=== PATIENT | male | born 1955 | race Caucasian/White ===

== ENCOUNTER → 2016-10-03 | Outpatient (REF) | payer OTHER ==
[2016-10-03 12:14] LABS: MEAN CORPUSCULAR HEMOGLOBIN 27.4 pg (27.0-33.0); MEAN CORPUSCULAR HGB CONC 31.4 g/dl (32.0-36.5); MEAN CORPUSCULAR VOLUME 87.4 fl (80.0-96.0); RED CELL DISTRIBUTION WIDTH 14.5 % (11.5-14.5); WHITE BLOOD COUNT 7.7 K/mm3 (4.0-10.0)
[2016-10-03 12:57] LABS: ALBUMIN 3.8 GM/DL (3.2-5.2); ALBUMIN/GLOBULIN RATIO 1.19 (1.00-1.93); ALKALINE PHOSPHATASE 92 U/L (45-117); ALT/SGPT 18 U/L (12-78); ANION GAP 7 MEQ/L (8-16); AST/SGOT 14 U/L (15-37); BILIRUBIN,TOTAL 0.5 MG/DL (0.2-1.0); BLOOD UREA NITROGEN 14 MG/DL (7-18); CARBON DIOXIDE LEVEL 29 MEQ/L (21-32); CHLORIDE LEVEL 104 MEQ/L (98-107); CHOLESTEROL LEVEL 203 MG/DL (<200); CREATININE FOR GFR 0.89 MG/DL (0.70-1.30); FERRITIN 30 NG/ML (26-388); GLOMERULAR FILTRATION RATE > 60.0 (>56); GLUCOSE, FASTING 100 MG/DL (70-105); POTASSIUM SERUM 4.3 MEQ/L (3.5-5.1); SODIUM LEVEL 140 MEQ/L (136-145); TRIGLYCERIDES LEVEL 94 MG/DL (<150)
== END ==
LOC: M SFHCLERA 07:59
PROVIDERS: ATTEND Physician Assistant
DX: D50.9 Iron deficiency anemia, unspecified (principal)

== ENCOUNTER → 2016-10-14 | Outpatient (CLI) | payer OTHER ==
[~2016-10-14] MED LIST: E-Z-PAQUE 96% w/w SUSP 176GM BTL As Ordered ONE
--- NOTE | 2016-10-14 17:37 | REP ---
SMALL BOWEL FOLLOW-THROUGH: The procedure was performed under the direct supervision of Dr. Miranda. The images were reviewed with Dr. Miranda. The potato grader film shows no organomegaly or pathological masses. The intestinal gas pattern is nonspecific. There are bowel sutures noted in the pelvis. There are surgical david noted overlying the right hip. Liquid barium was administered and the barium column was followed through the small bowel to the level of the terminal ileum. Small bowel transit time was approximately 1 hour. In the ileum there are 2 areas of narrowing which are apple core like in appearance. These may be skip lesions from inflammatory bowel disease, however malignancy is in the differential. The terminal ileum shows a long segment of irregular mucosa with separation of loops. Again this may represent inflammatory bowel disease versus malignancy. IMPRESSION: In the ileum there are two areas of narrowing which appear apple core like. The terminal ileum shows irregular mucosa with separation of loops. These findings may represent inflammatory bowel disease however malignancy is within the differential. 4 minutes and 1 second of fluoroscopy time was utilized for this procedure. Reviewed by ZHANG Fiore 10/15/2016 05:14 PEdited and Signed by Masood Miranda MD 10/15/2016 05:20 P
== END ==
LOC: M RAD 08:24
PROVIDERS: ATTEND Internal Medicine Gastroenterology
DX: Z12.11 Encounter for screening for malignant neoplasm of colon (principal)

== ENCOUNTER 2017-02-03 14:48 | Emergency (ER) | payer OTHER ==
[~2017-02-03] VITALS: Ht 177.8 cm; Wt 79.5 kg
[2017-02-03] MEDS ORDERED: METO1TAB32 (15:00)
[2017-02-03] MEDS ORDERED: MULT1CHW39 PO (15:00)
[2017-02-03] MEDS ORDERED: ASPI81TA85 PO (15:00)
[2017-02-03] MEDS ORDERED: LORA2TAB9 (15:00)
[2017-02-03] MEDS ORDERED: VITA200016 PO (15:00)
[2017-02-03 16:34] LABS: BASO % 0.4 % (0.0-1.0); EOS # 0.1 K/mm3 (0.0-0.50); EOS % 1.3 % (0.0-3.0); LARGE UNSTAINED CELL # 0.1 K/mm3 (0.0-0.4); LARGE UNSTAINED CELL % 1.5 % (0.0-4.0); LYMPH # 2.1 K/mm3 (1.5-4.5); LYMPH % 22.4 % (24.0-44.0); MEAN CORPUSCULAR HEMOGLOBIN 29.3 pg (27.0-33.0); MEAN CORPUSCULAR HGB CONC 32.9 g/dl (32.0-36.5); MEAN CORPUSCULAR VOLUME 89.1 fl (80.0-96.0); MONO # 0.6 K/mm3 (0.0-0.8); MONO % 6.3 % (0.0-5.0); NEUTROPHILS # 5.9 K/mm3 (1.8-7.7); NEUTROPHILS % 68.1 % (36.0-66.0); PLATELET COUNT, AUTOMATED 297 k/mm3 (150-450); RED CELL DISTRIBUTION WIDTH 14.1 % (11.5-14.5); WHITE BLOOD COUNT 8.7 K/mm3 (4.0-10.0)
[2017-02-03 16:59] LABS: ANION GAP 8 MEQ/L (8-16); BLOOD UREA NITROGEN 16 MG/DL (7-18); CALCIUM LEVEL 8.9 MG/DL (8.5-10.1); CARBON DIOXIDE LEVEL 25 MEQ/L (21-32); CHLORIDE LEVEL 108 MEQ/L (98-107); CREATININE FOR GFR 0.83 MG/DL (0.70-1.30); GLOMERULAR FILTRATION RATE > 60.0 (>56); GLUCOSE, FASTING 107 MG/DL (70-105); POTASSIUM SERUM 3.7 MEQ/L (3.5-5.1); SODIUM LEVEL 141 MEQ/L (136-145)
[2017-02-03 17:38] VITALS: BP 136/87
--- NOTE | 2017-02-03 20:34 | ECGEPIP ---
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
== END 2017-02-03 17:39 | disposition home or self-care (01) ==
LOC: M ED 14:48
DX: I44.0 Atrioventricular block, first degree (principal); R00.2 Palpitations; I48.91 Unspecified atrial fibrillation; I10 Essential (primary) hypertension; E78.5 Hyperlipidemia, unspecified; I38 Endocarditis, valve unspecified; Z79.82 Long term (current) use of aspirin; Z79.899 Other long term (current) drug therapy

== ENCOUNTER → 2017-03-28 | Outpatient (REF) | payer OTHER ==
[~2017-03-28] MED LIST changes: +ASPI81TA85 PO; -E-Z-PAQUE 96% w/w SUSP 176GM BTL As Ordered ONE; +LORA2TAB9; +METO1TAB32; +MULT1CHW39 PO; +VITA200016 PO
[2017-03-28 12:17] LABS: ALBUMIN 3.5 GM/DL (3.2-5.2); ALKALINE PHOSPHATASE 87 U/L (45-117); ALT/SGPT 18 U/L (12-78); ANION GAP 8 MEQ/L (8-16); AST/SGOT 10 U/L (15-37); BILIRUBIN,TOTAL 0.5 MG/DL (0.2-1.0); BLOOD UREA NITROGEN 18 MG/DL (7-18); CALCIUM LEVEL 9.2 MG/DL (8.8-10.2); CARBON DIOXIDE LEVEL 29 MEQ/L (21-32); CHLORIDE LEVEL 103 MEQ/L (98-107); CHOLESTEROL LEVEL 202 MG/DL (<200); CREATININE FOR GFR 0.83 MG/DL (0.70-1.30); GLOMERULAR FILTRATION RATE > 60.0 (>49); GLUCOSE, FASTING 83 MG/DL (80-110); POTASSIUM SERUM 4.3 MEQ/L (3.5-5.1); SODIUM LEVEL 140 MEQ/L (136-145); TRIGLYCERIDES LEVEL 98 MG/DL (<150)
== END ==
LOC: M SFHCLERA 07:39
PROVIDERS: ATTEND Physician Assistant
DX: E78.2 Mixed hyperlipidemia (principal); Z12.5 Encounter for screening for malignant neoplasm of prostate

== ENCOUNTER 2017-08-04 16:33 | Inpatient (IN) | payer OTHER ==
[2017-08-04 17:54] LABS: BASO # 0.1 10^3/uL (0.0-0.2); BASO % 0.3 % (0.0-1.0); EOS # 0.1 10^3/uL (0.0-0.50); EOS % 0.2 % (0.0-3.0); HEMATOCRIT 38.2 % (42.0-52.0); HEMOGLOBIN 12.5 g/dl (14.0-18.0); IMMATURE GRANULOCYTE % 1.4 % (0-3.0); LYMPH # 0.3 10^3/uL (1.5-4.5); LYMPH % 1.3 % (24.0-44.0); MEAN CORPUSCULAR HEMOGLOBIN 27.6 pg (27.0-33.0); MEAN CORPUSCULAR HGB CONC 32.7 g/dl (32.0-36.5); MEAN CORPUSCULAR VOLUME 84.3 fl (80.0-96.0); MONO # 0.9 10^3/uL (0.0-0.8); MONO % 3.7 % (0.0-5.0); NEUTROPHILS # 22.8 10^3/uL (1.8-7.7); NEUTROPHILS % 93.1 % (36.0-66.0); PLATELET COUNT, AUTOMATED 469 10^3/uL (150-450); RED BLOOD COUNT 4.53 10^6/uL (4.30-6.10); RED CELL DISTRIBUTION WIDTH 14.9 % (11.5-14.5); WHITE BLOOD COUNT 24.6 10^3/uL (4.0-10.0)
[2017-08-04] MEDS: ACETAMINOPHEN TAB 650MG DOSE (2X325MG) PO (18:00)
[2017-08-04 18:15] LABS: INR 1.05; PROTHROMBIN TIME 13.8 SECONDS (12.4-14.5)
[2017-08-04 18:16] LABS: PARTIAL THROMBOPLASTIN TIME 34.3 SECONDS (26.8-37.9)
[2017-08-04 18:25] LABS: ALBUMIN 2.9 GM/DL (3.2-5.2); ALBUMIN/GLOBULIN RATIO 0.83 (1.00-1.93); ALKALINE PHOSPHATASE 445 U/L (45-117); ALT/SGPT 92 U/L (12-78); ANION GAP 11 MEQ/L (8-16); AST/SGOT 110 U/L (7-37); BILIRUBIN,DIRECT 0.3 MG/DL (0.0-0.2); BILIRUBIN,TOTAL 0.5 MG/DL (0.2-1.0); BLOOD UREA NITROGEN 27 MG/DL (7-18); CALCIUM LEVEL 8.3 MG/DL (8.8-10.2); CARBON DIOXIDE LEVEL 25 MEQ/L (21-32); CHLORIDE LEVEL 103 MEQ/L (98-107); CPK CREATINE PHOSPHOKINASE 31 U/L (39-308); CREATININE FOR GFR 1.28 MG/DL (0.70-1.30); GLOMERULAR FILTRATION RATE > 60.0 (>49); GLUCOSE, FASTING 162 MG/DL (70-100); LIPASE 3710 U/L (73-393); MAGNESIUM LEVEL 1.8 MG/DL (1.8-2.4); PHOSPHORUS LEVEL 2.4 MG/DL (2.5-4.9); POTASSIUM SERUM 4.1 MEQ/L (3.5-5.1); SODIUM LEVEL 139 MEQ/L (136-145); TOTAL PROTEIN 6.4 GM/DL (6.4-8.2); TROPONIN I 0.03 NG/ML (< 0.10)
[2017-08-04] MEDS: PIPERACILLIN/TAZOBACTAM SOD 3.375 GM in APPROPRIATE DILUENT 1 EA IV (18:30)
[2017-08-04 18:31] LABS: CK-MB VALUE MASS 1.3 NG/ML (0.0-3.6); FREE T4 1.26 NG/DL (0.76-1.46); MB/CK RELATIVE INDEX 4.19 (< OR =4)
[2017-08-04] MEDS: GASTROGRAFIN SOLUTION 30ML PO ×2 (19:15→19:32)
[2017-08-04] MEDS ORDERED: ISOVUE-370 76% 100ML VIAL (Q9967) As Ordered (20:29)
[2017-08-04] MEDS: MORPHINE 4 MG/ML 1ML VIAL (J2270) IV (20:45)
[2017-08-04 20:54] LABS: KETONE, URINE AUTO RFX NEGATIVE (NEGATIVE); MUCUS, URINE RFX SMALL (NEGATIVE); NITRITE, URINE AUTO RFX NEGATIVE (NEGATIVE); RBC, URINE AUTO RFX 3 /HPF (0-3); SPECIFIC GRAVITY UR AUTO RFX 1.014 (1.002-1.035); SQUAM EPITHELIAL CELL UR AURFX 0 /HPF (0-6)
[2017-08-04 20:55] LABS: LEUKOCYTE ESTERASE UR AUTO RFX 3+ (NEGATIVE); WBC, URINE AUTO RFX 64 /HPF (0-3)
[2017-08-04] MEDS: NS 1,000 ML IV (21:46)
[2017-08-04] MEDS ORDERED: diphenhydrAMINE CREAM 30GM TOP (22:00)
[2017-08-04] MEDS: DOXYCYCLINE HYCLATE 100 MG in D5W MINI-BAG PLUS 100 ML IV (22:26)
[2017-08-05 00:44] LABS: CPK CREATINE PHOSPHOKINASE 25 U/L (39-308); TROPONIN I 0.03 NG/ML (< 0.10)
[2017-08-05] MEDS: MEROPENEM INJ 1 GM in APPROPRIATE DILUENT 1 EA IV ×3 (01:22→16:12)
[2017-08-05] MEDS: ACETAMINOPHEN TAB 650MG DOSE (2X325MG) PO ×3 (01:23→21:31)
[2017-08-05] MEDS: HEPARIN SOD (PORCINE) 5000 UNITS/ML VIAL SC ×3 (05:48→21:30)
[2017-08-05 07:04] LABS: BASO # 0.1 10^3/uL (0.0-0.2); BASO % 0.3 % (0.0-1.0); EOS # 0.1 10^3/uL (0.0-0.50); EOS % 0.2 % (0.0-3.0); HEMATOCRIT 33.5 % (42.0-52.0); IMMATURE GRANULOCYTE % 1.5 % (0-3.0); LYMPH # 0.9 10^3/uL (1.5-4.5); LYMPH % 2.8 % (24.0-44.0); MEAN CORPUSCULAR HEMOGLOBIN 27.7 pg (27.0-33.0); MEAN CORPUSCULAR HGB CONC 32.8 g/dl (32.0-36.5); MEAN CORPUSCULAR VOLUME 84.4 fl (80.0-96.0); MONO # 1.1 10^3/uL (0.0-0.8); MONO % 3.2 % (0.0-5.0); PLATELET COUNT, AUTOMATED 410 10^3/uL (150-450); RED BLOOD COUNT 3.97 10^6/uL (4.30-6.10); RED CELL DISTRIBUTION WIDTH 14.6 % (11.5-14.5)
[2017-08-05 07:27] LABS: ALBUMIN 2.3 GM/DL (3.2-5.2); ALBUMIN/GLOBULIN RATIO 0.59 (1.00-1.93); ALKALINE PHOSPHATASE 308 U/L (45-117); ALT/SGPT 70 U/L (12-78); ANION GAP 8 MEQ/L (8-16); AST/SGOT 54 U/L (7-37); BLOOD UREA NITROGEN 22 MG/DL (7-18); CARBON DIOXIDE LEVEL 28 MEQ/L (21-32); CHLORIDE LEVEL 103 MEQ/L (98-107); CPK CREATINE PHOSPHOKINASE 25 U/L (39-308); CREATININE FOR GFR 1.22 MG/DL (0.70-1.30); GLOMERULAR FILTRATION RATE > 60.0 (>49); GLUCOSE, FASTING 108 MG/DL (70-100); MAGNESIUM LEVEL 2.1 MG/DL (1.8-2.4); SODIUM LEVEL 139 MEQ/L (136-145); TOTAL PROTEIN 6.2 GM/DL (6.4-8.2); TROPONIN I 0.02 NG/ML (< 0.10)
[2017-08-05 07:30] LABS: NEUTROPHILS # 30.4 10^3/uL (1.8-7.7); POS COUNT POS FLAG; POSITIVE DIFF POS FLAG; WHITE BLOOD COUNT 33.1 10^3/uL (4.0-10.0)
[2017-08-05] MEDS: NS 1,000 ML IV ×3 (07:36→17:01)
[2017-08-05] MEDS: VITAMIN D 1,000 INTERNATIONAL UNITS TABLET PO (08:03)
[2017-08-05] MEDS: ASPIRIN 81 MG ENTERIC TAB PO (08:03)
[2017-08-05] MEDS: PANTOPRAZOLE 40MG INJ (PROTONIX) (C9113) IV (08:03)
[2017-08-05] MEDS: FERROUS SULFATE 325MG TAB PO (08:04)
[2017-08-05] MEDS: METOPROLOL SUCC (TopROL XL) 50MG **XL** TAB PO (08:04)
[2017-08-05] MEDS: GABAPENTIN 300 MG CAP PO ×3 (08:04→21:30)
[2017-08-05] MEDS: MULTIVITAMINS/MINERALS THERAP 1 TAB PO (08:05)
[2017-08-05 09:57] LABS: LIPASE 2720 U/L (73-393)
[2017-08-05] MEDS: DOXYCYCLINE HYCLATE 100 MG in D5W MINI-BAG PLUS 100 ML IV ×2 (11:03→23:44)
[2017-08-05 13:07] LABS: REASON FOR REVIEW OTHER; SLIDE REVIEW Report; SOURCE PERIPHERAL SMEAR
[2017-08-05] MEDS: LORazepam 2 MG TAB PO (21:29)
[2017-08-06] MEDS: MEROPENEM INJ 1 GM in APPROPRIATE DILUENT 1 EA IV ×2 (00:45→08:15)
[2017-08-06] MEDS ORDERED: SLF 3 ML SYR IV (03:15)
[2017-08-06 05:43] LABS: BASO # 0.1 10^3/uL (0.0-0.2); BASO % 0.3 % (0.0-1.0); EOS # 0.2 10^3/uL (0.0-0.50); EOS % 1.2 % (0.0-3.0); HEMATOCRIT 32.7 % (42.0-52.0); HEMOGLOBIN 10.6 g/dl (14.0-18.0); IMMATURE GRANULOCYTE % 1.9 % (0-3.0); LYMPH # 1.3 10^3/uL (1.5-4.5); LYMPH % 6.6 % (24.0-44.0); MEAN CORPUSCULAR HEMOGLOBIN 27.7 pg (27.0-33.0); MEAN CORPUSCULAR HGB CONC 32.4 g/dl (32.0-36.5); MEAN CORPUSCULAR VOLUME 85.6 fl (80.0-96.0); MONO # 1.3 10^3/uL (0.0-0.8); MONO % 6.7 % (0.0-5.0); NEUTROPHILS # 16.1 10^3/uL (1.8-7.7); NEUTROPHILS % 83.3 % (36.0-66.0); PLATELET COUNT, AUTOMATED 384 10^3/uL (150-450); RED BLOOD COUNT 3.82 10^6/uL (4.30-6.10); RED CELL DISTRIBUTION WIDTH 15.1 % (11.5-14.5); WHITE BLOOD COUNT 19.3 10^3/uL (4.0-10.0)
[2017-08-06] MEDS: SLF 3 ML SYR IV ×3 (05:49→20:55)
[2017-08-06] MEDS: HEPARIN SOD (PORCINE) 5000 UNITS/ML VIAL SC ×3 (05:49→20:54)
[2017-08-06 06:02] LABS: ALBUMIN 2.1 GM/DL (3.2-5.2); ALBUMIN/GLOBULIN RATIO 0.55 (1.00-1.93); ALKALINE PHOSPHATASE 240 U/L (45-117); ALT/SGPT 47 U/L (12-78); ANION GAP 5 MEQ/L (8-16); AST/SGOT 28 U/L (7-37); BILIRUBIN,TOTAL 0.4 MG/DL (0.2-1.0); BLOOD UREA NITROGEN 22 MG/DL (7-18); CALCIUM LEVEL 8.1 MG/DL (8.8-10.2); CARBON DIOXIDE LEVEL 29 MEQ/L (21-32); CHLORIDE LEVEL 108 MEQ/L (98-107); CREATININE FOR GFR 1.32 MG/DL (0.70-1.30); GLOMERULAR FILTRATION RATE 58.9 (>49); GLUCOSE, FASTING 96 MG/DL (70-100); LIPASE 1924 U/L (73-393); MAGNESIUM LEVEL 2.2 MG/DL (1.8-2.4); SODIUM LEVEL 142 MEQ/L (136-145); TOTAL PROTEIN 5.9 GM/DL (6.4-8.2)
[2017-08-06] MEDS: VITAMIN D 1,000 INTERNATIONAL UNITS TABLET PO (08:15)
[2017-08-06] MEDS: PANTOPRAZOLE 40MG INJ (PROTONIX) (C9113) IV (08:15)
[2017-08-06] MEDS: GABAPENTIN 300 MG CAP PO ×3 (08:16→20:54)
[2017-08-06] MEDS: MULTIVITAMINS/MINERALS THERAP 1 TAB PO (08:16)
[2017-08-06] MEDS: ASPIRIN 81 MG ENTERIC TAB PO (08:16)
[2017-08-06] MEDS: FERROUS SULFATE 325MG TAB PO (08:16)
[2017-08-06] MEDS: METOPROLOL SUCC (TopROL XL) 50MG **XL** TAB PO (08:16)
[2017-08-06] MEDS: CIPROFLOXACIN 400 MG in APPROPRIATE DILUENT 1 EA IV ×2 (11:01→20:55)
[2017-08-06] MEDS: NS 1,000 ML IV (17:56)
[2017-08-06] MEDS: LORazepam 2 MG TAB PO (20:54)
[2017-08-06] MEDS: TAMSULOSIN 0.4 MG CAP PO (20:54)
[2017-08-07] MEDS: NS 1,000 ML IV ×5 (00:55→23:29)
[2017-08-07] MEDS: HEPARIN SOD (PORCINE) 5000 UNITS/ML VIAL SC ×3 (05:17→20:42)
[2017-08-07] MEDS: SLF 3 ML SYR IV ×3 (05:17→20:42)
[2017-08-07 05:42] LABS: BASO % 0.2 % (0.0-1.0); EOS # 0.2 10^3/uL (0.0-0.50); EOS % 1.2 % (0.0-3.0); HEMATOCRIT 32.2 % (42.0-52.0); HEMOGLOBIN 10.5 g/dl (14.0-18.0); IMMATURE GRANULOCYTE % 1.4 % (0-3.0); LYMPH # 1.3 10^3/uL (1.5-4.5); LYMPH % 10.3 % (24.0-44.0); MEAN CORPUSCULAR HEMOGLOBIN 27.7 pg (27.0-33.0); MEAN CORPUSCULAR HGB CONC 32.6 g/dl (32.0-36.5); MONO # 0.8 10^3/uL (0.0-0.8); MONO % 6.5 % (0.0-5.0); NEUTROPHILS # 9.8 10^3/uL (1.8-7.7); NEUTROPHILS % 80.4 % (36.0-66.0); PLATELET COUNT, AUTOMATED 427 10^3/uL (150-450); RED BLOOD COUNT 3.79 10^6/uL (4.30-6.10); RED CELL DISTRIBUTION WIDTH 15.1 % (11.5-14.5); WHITE BLOOD COUNT 12.2 10^3/uL (4.0-10.0)
[2017-08-07 06:10] LABS: ALBUMIN 2.1 GM/DL (3.2-5.2); ALBUMIN/GLOBULIN RATIO 0.57 (1.00-1.93); ALKALINE PHOSPHATASE 216 U/L (45-117); ALT/SGPT 37 U/L (12-78); ANION GAP 7 MEQ/L (8-16); AST/SGOT 18 U/L (7-37); BILIRUBIN,TOTAL 0.3 MG/DL (0.2-1.0); BLOOD UREA NITROGEN 23 MG/DL (7-18); CALCIUM LEVEL 8.5 MG/DL (8.8-10.2); CARBON DIOXIDE LEVEL 26 MEQ/L (21-32); CHLORIDE LEVEL 109 MEQ/L (98-107); CREATININE FOR GFR 1.17 MG/DL (0.70-1.30); GLOMERULAR FILTRATION RATE > 60.0 (>49); GLUCOSE, FASTING 94 MG/DL (70-100); MAGNESIUM LEVEL 2.3 MG/DL (1.8-2.4); POTASSIUM SERUM 3.7 MEQ/L (3.5-5.1); SODIUM LEVEL 142 MEQ/L (136-145); TOTAL PROTEIN 5.8 GM/DL (6.4-8.2)
[2017-08-07] MEDS: METOPROLOL SUCC (TopROL XL) 50MG **XL** TAB PO (09:00)
[2017-08-07] MEDS: GABAPENTIN 300 MG CAP PO ×3 (09:48→20:42)
[2017-08-07] MEDS: ASPIRIN 81 MG ENTERIC TAB PO (09:49)
[2017-08-07] MEDS: CIPROFLOXACIN 400 MG in APPROPRIATE DILUENT 1 EA IV ×2 (09:49→20:42)
[2017-08-07] MEDS: VITAMIN D 1,000 INTERNATIONAL UNITS TABLET PO (09:49)
[2017-08-07] MEDS: MULTIVITAMINS/MINERALS THERAP 1 TAB PO (09:49)
[2017-08-07] MEDS: FERROUS SULFATE 325MG TAB PO (09:49)
[2017-08-07 10:27] LABS: LIPASE 839 U/L (73-393)
[2017-08-07] MEDS: LORazepam 2 MG TAB PO (20:42)
[2017-08-07] MEDS: TAMSULOSIN 0.4 MG CAP PO (20:42)
[2017-08-08 00:06] LABS: CYCLIC CITRULLINATED PEPTIDE 3 units (0-19)
[2017-08-08 00:06] LABS: ANTINUCLEAR ANTIBODIES DIRECT Negative (Negative); Lyme Disease IgG/IgM Antibodie <0.91 ISR (0.00-0.90); Lyme Disease IgM Ab Quantitati <0.80 index (0.00-0.79)
[2017-08-08] MEDS: HEPARIN SOD (PORCINE) 5000 UNITS/ML VIAL SC ×2 (05:13→14:00)
[2017-08-08] MEDS: SLF 3 ML SYR IV ×2 (05:13→14:00)
[2017-08-08] MEDS: NS 1,000 ML IV (05:13)
[2017-08-08 06:02] LABS: BASO % 0.2 % (0.0-1.0); EOS # 0.1 10^3/uL (0.0-0.50); EOS % 1.3 % (0.0-3.0); HEMATOCRIT 31.6 % (42.0-52.0); HEMOGLOBIN 10.3 g/dl (14.0-18.0); IMMATURE GRANULOCYTE % 1.2 % (0-3.0); LYMPH # 1.3 10^3/uL (1.5-4.5); LYMPH % 12.9 % (24.0-44.0); MEAN CORPUSCULAR HEMOGLOBIN 27.8 pg (27.0-33.0); MEAN CORPUSCULAR HGB CONC 32.6 g/dl (32.0-36.5); MEAN CORPUSCULAR VOLUME 85.4 fl (80.0-96.0); MONO # 0.6 10^3/uL (0.0-0.8); MONO % 6.6 % (0.0-5.0); NEUTROPHILS # 7.5 10^3/uL (1.8-7.7); NEUTROPHILS % 77.8 % (36.0-66.0); PLATELET COUNT, AUTOMATED 458 10^3/uL (150-450); RED CELL DISTRIBUTION WIDTH 15.2 % (11.5-14.5); WHITE BLOOD COUNT 9.7 10^3/uL (4.0-10.0)
[2017-08-08 06:28] LABS: ALBUMIN 2.2 GM/DL (3.2-5.2); ALBUMIN/GLOBULIN RATIO 0.58 (1.00-1.93); ALKALINE PHOSPHATASE 215 U/L (45-117); ALT/SGPT 40 U/L (12-78); ANION GAP 7 MEQ/L (8-16); AST/SGOT 29 U/L (7-37); BILIRUBIN,TOTAL 0.3 MG/DL (0.2-1.0); BLOOD UREA NITROGEN 19 MG/DL (7-18); CALCIUM LEVEL 8.4 MG/DL (8.8-10.2); CARBON DIOXIDE LEVEL 28 MEQ/L (21-32); CHLORIDE LEVEL 110 MEQ/L (98-107); GLOMERULAR FILTRATION RATE > 60.0 (>49); GLUCOSE, FASTING 97 MG/DL (70-100); MAGNESIUM LEVEL 2.2 MG/DL (1.8-2.4); SODIUM LEVEL 145 MEQ/L (136-145)
[2017-08-08] MEDS: VITAMIN D 1,000 INTERNATIONAL UNITS TABLET PO (08:55)
[2017-08-08] MEDS: ASPIRIN 81 MG ENTERIC TAB PO (08:55)
[2017-08-08] MEDS: FERROUS SULFATE 325MG TAB PO (08:56)
[2017-08-08] MEDS: MULTIVITAMINS/MINERALS THERAP 1 TAB PO (08:56)
[2017-08-08] MEDS: GABAPENTIN 300 MG CAP PO (08:56)
[2017-08-08] MEDS: METOPROLOL SUCC (TopROL XL) 50MG **XL** TAB PO (08:56)
[2017-08-08] MEDS: CIPROFLOXACIN 400 MG in APPROPRIATE DILUENT 1 EA IV (10:00)
== END 2017-08-08 15:05 | disposition home or self-care (01) | DRG 728 ==
LOC: M MSPAV 08-08 03:54 → M ED 16:33 → M PCU 08-05 16:40 → M ED INP 21:46
PROVIDERS: Internal Medicine
DX: N41.0 Acute prostatitis (principal); K50.90 Crohn's disease, unspecified, without complications; I10 Essential (primary) hypertension; E78.5 Hyperlipidemia, unspecified; G60.9 Hereditary and idiopathic neuropathy, unspecified; Z95.810 Presence of automatic (implantable) cardiac defibrillator; Z95.2 Presence of prosthetic heart valve; Z79.82 Long term (current) use of aspirin; Z79.899 Other long term (current) drug therapy; Z88.1 Allergy status to other antibiotic agents; Z88.8 Allergy status to other drugs, medicaments and biological substances

== ENCOUNTER 2017-08-09 17:57 | Inpatient (IN) | payer OTHER ==
[2017-08-09] MEDS ORDERED: ACETAMINOPHEN TAB 650MG DOSE (2X325MG) As Ordered (18:23)
[2017-08-09] MEDS: NS 1,000 ML IV ×3 (18:28→22:19)
[2017-08-09] MEDS: ACETAMINOPHEN TAB 650MG DOSE (2X325MG) PO (18:28)
[2017-08-09 18:31] LABS: BASO # 0.1 10^3/uL (0.0-0.2); BASO % 0.3 % (0.0-1.0); EOS % 0.1 % (0.0-3.0); HEMATOCRIT 38.6 % (42.0-52.0); HEMOGLOBIN 12.5 g/dl (14.0-18.0); IMMATURE GRANULOCYTE % 0.6 % (0-3.0); LYMPH # 0.8 10^3/uL (1.5-4.5); LYMPH % 2.7 % (24.0-44.0); MEAN CORPUSCULAR HGB CONC 32.4 g/dl (32.0-36.5); MEAN CORPUSCULAR VOLUME 86.4 fl (80.0-96.0); MONO # 0.9 10^3/uL (0.0-0.8); MONO % 3.1 % (0.0-5.0); NEUTROPHILS % 93.2 % (36.0-66.0); PLATELET COUNT, AUTOMATED 534 10^3/uL (150-450); RED BLOOD COUNT 4.47 10^6/uL (4.30-6.10); RED CELL DISTRIBUTION WIDTH 14.9 % (11.5-14.5); WHITE BLOOD COUNT 27.5 10^3/uL (4.0-10.0)
[2017-08-09 18:37] LABS: KETONE, URINE AUTO RFX NEGATIVE (NEGATIVE); LEUKOCYTE ESTERASE UR AUTO RFX 2+ (NEGATIVE); NITRITE, URINE AUTO RFX NEGATIVE (NEGATIVE); RBC, URINE AUTO RFX 6 /HPF (0-3); SPECIFIC GRAVITY UR AUTO RFX 1.008 (1.002-1.035); SQUAM EPITHELIAL CELL UR AURFX 0 /HPF (0-6); WBC, URINE AUTO RFX 20 /HPF (0-3)
[2017-08-09 18:44] LABS: ANION GAP 10 MEQ/L (8-16); BLOOD UREA NITROGEN 23 MG/DL (7-18); CALCIUM LEVEL 9.2 MG/DL (8.8-10.2); CARBON DIOXIDE LEVEL 28 MEQ/L (21-32); CHLORIDE LEVEL 103 MEQ/L (98-107); CREATININE FOR GFR 1.12 MG/DL (0.70-1.30); GLOMERULAR FILTRATION RATE > 60.0 (>49); GLUCOSE, FASTING 99 MG/DL (70-100); POTASSIUM SERUM 4.6 MEQ/L (3.5-5.1); SODIUM LEVEL 141 MEQ/L (136-145)
[2017-08-09 18:47] LABS: LACTIC ACID SEPSIS PROTOCOL 1.8 MMOL/L (0.4-2.0)
[2017-08-09 18:53] LABS: NEUTROPHILS # 25.6 10^3/uL (1.8-7.7); POSITIVE DIFF POS FLAG
[2017-08-09 18:54] LABS: ALBUMIN 2.9 GM/DL (3.2-5.2); ALBUMIN/GLOBULIN RATIO 0.62 (1.00-1.93); ALKALINE PHOSPHATASE 275 U/L (45-117); ALT/SGPT 47 U/L (12-78); AST/SGOT 34 U/L (7-37); BILIRUBIN,DIRECT 0.1 MG/DL (0.0-0.2); BILIRUBIN,TOTAL 0.4 MG/DL (0.2-1.0); LIPASE 8825 U/L (73-393); TOTAL PROTEIN 7.6 GM/DL (6.4-8.2)
[2017-08-09] MEDS ORDERED: ISOVUE-370 76% 100ML VIAL (Q9967) As Ordered (19:25)
[2017-08-09] MEDS: IBUPROFEN 600 MG TAB PO (19:30)
[2017-08-09] MEDS ORDERED: ACETAMINOPHEN TAB 650MG DOSE (2X325MG) PO (22:30)
[2017-08-09 22:47] LABS: C REACTIVE PROTEIN QUANTITATIV 4.89 MG/DL (0.00-0.30); CPK CREATINE PHOSPHOKINASE 30 U/L (39-308); TROPONIN I < 0.02 NG/ML (< 0.10)
[2017-08-09 22:50] LABS: MB/CK RELATIVE INDEX 3.33 (< OR =4)
[2017-08-10] MEDS: MEROPENEM INJ 1 GM in APPROPRIATE DILUENT 1 EA IV ×3 (01:13→15:14)
[2017-08-10] MEDS: GABAPENTIN 300 MG CAP PO ×4 (01:13→21:17)
[2017-08-10] MEDS: LORazepam 2 MG TAB PO ×2 (01:13→21:17)
[2017-08-10 01:31] LABS: CPK CREATINE PHOSPHOKINASE 18 U/L (39-308); MB/CK RELATIVE INDEX 5.55 (< OR =4); TROPONIN I 0.05 NG/ML (< 0.10)
[2017-08-10 06:57] LABS: BASO # 0.1 10^3/uL (0.0-0.2); BASO % 0.3 % (0.0-1.0); EOS # 0.1 10^3/uL (0.0-0.50); EOS % 0.3 % (0.0-3.0); HEMATOCRIT 30.1 % (42.0-52.0); IMMATURE GRANULOCYTE % 0.8 % (0-3.0); LYMPH # 1.1 10^3/uL (1.5-4.5); LYMPH % 4.1 % (24.0-44.0); MEAN CORPUSCULAR HEMOGLOBIN 28.4 pg (27.0-33.0); MEAN CORPUSCULAR HGB CONC 32.9 g/dl (32.0-36.5); MEAN CORPUSCULAR VOLUME 86.2 fl (80.0-96.0); MONO # 1.1 10^3/uL (0.0-0.8); MONO % 4.2 % (0.0-5.0); NEUTROPHILS # 23.5 10^3/uL (1.8-7.7); NEUTROPHILS % 90.3 % (36.0-66.0); RED BLOOD COUNT 3.49 10^6/uL (4.30-6.10)
[2017-08-10 07:15] LABS: HEMOGLOBIN 9.9 g/dl (14.0-18.0); PLATELET COUNT, AUTOMATED 413 10^3/uL (150-450)
[2017-08-10 07:19] LABS: ALBUMIN 2.2 GM/DL (3.2-5.2); ALBUMIN/GLOBULIN RATIO 0.58 (1.00-1.93); ALKALINE PHOSPHATASE 200 U/L (45-117); ALT/SGPT 33 U/L (12-78); ANION GAP 8 MEQ/L (8-16); AST/SGOT 23 U/L (7-37); BILIRUBIN,TOTAL 0.7 MG/DL (0.2-1.0); BLOOD UREA NITROGEN 19 MG/DL (7-18); CALCIUM LEVEL 7.9 MG/DL (8.8-10.2); CARBON DIOXIDE LEVEL 26 MEQ/L (21-32); CHLORIDE LEVEL 109 MEQ/L (98-107); CK-MB VALUE MASS 1.3 NG/ML (0.0-3.6); CPK CREATINE PHOSPHOKINASE 24 U/L (39-308); CREATININE FOR GFR 1.17 MG/DL (0.70-1.30); GLOMERULAR FILTRATION RATE > 60.0 (>49); GLUCOSE, FASTING 94 MG/DL (70-100); MB/CK RELATIVE INDEX 5.41 (< OR =4); POTASSIUM SERUM 3.8 MEQ/L (3.5-5.1); SODIUM LEVEL 143 MEQ/L (136-145); TROPONIN I 0.04 NG/ML (< 0.10)
[2017-08-10] MEDS: MULTIVITAMINS/MINERALS THERAP 1 TAB PO (08:35)
[2017-08-10] MEDS: ASPIRIN 81 MG ENTERIC TAB PO (08:35)
[2017-08-10] MEDS: METOPROLOL SUCC *XL* 25MG TAB (TopROL *XL*) PO (08:35)
[2017-08-10] MEDS: VITAMIN D 1,000 INTERNATIONAL UNITS TABLET PO (08:36)
[2017-08-10] MEDS: FERROUS SULFATE 325MG TAB PO (08:36)
[2017-08-10] MEDS: ENOXAPARIN 40 MG/0.4 ML SYRINGE (J1650) SC (08:36)
[2017-08-11] MEDS: MEROPENEM INJ 1 GM in APPROPRIATE DILUENT 1 EA IV (01:32)
[2017-08-11 04:15] LABS: BASO % 0.2 % (0.0-1.0); EOS # 0.2 10^3/uL (0.0-0.50); EOS % 1.2 % (0.0-3.0); HEMATOCRIT 30.6 % (42.0-52.0); HEMOGLOBIN 10.1 g/dl (14.0-18.0); IMMATURE GRANULOCYTE % 0.5 % (0-3.0); LYMPH # 1.4 10^3/uL (1.5-4.5); LYMPH % 8.4 % (24.0-44.0); MEAN CORPUSCULAR HEMOGLOBIN 27.8 pg (27.0-33.0); MEAN CORPUSCULAR VOLUME 84.3 fl (80.0-96.0); MONO # 1.1 10^3/uL (0.0-0.8); MONO % 6.8 % (0.0-5.0); NEUTROPHILS # 13.7 10^3/uL (1.8-7.7); NEUTROPHILS % 82.9 % (36.0-66.0); PLATELET COUNT, AUTOMATED 452 10^3/uL (150-450); RED BLOOD COUNT 3.63 10^6/uL (4.30-6.10); RED CELL DISTRIBUTION WIDTH 15.1 % (11.5-14.5); WHITE BLOOD COUNT 16.5 10^3/uL (4.0-10.0)
[2017-08-11 04:38] LABS: ALBUMIN 2.2 GM/DL (3.2-5.2); ALBUMIN/GLOBULIN RATIO 0.56 (1.00-1.93); ALKALINE PHOSPHATASE 180 U/L (45-117); ALT/SGPT 27 U/L (12-78); ANION GAP 6 MEQ/L (8-16); AST/SGOT 18 U/L (7-37); BILIRUBIN,TOTAL 0.4 MG/DL (0.2-1.0); BLOOD UREA NITROGEN 19 MG/DL (7-18); CALCIUM LEVEL 8.3 MG/DL (8.8-10.2); CARBON DIOXIDE LEVEL 28 MEQ/L (21-32); CHLORIDE LEVEL 108 MEQ/L (98-107); CREATININE FOR GFR 1.05 MG/DL (0.70-1.30); GLOMERULAR FILTRATION RATE > 60.0 (>49); GLUCOSE, FASTING 109 MG/DL (70-100); POTASSIUM SERUM 3.6 MEQ/L (3.5-5.1); SODIUM LEVEL 142 MEQ/L (136-145); TOTAL PROTEIN 6.1 GM/DL (6.4-8.2)
[2017-08-11 08:07] LABS: LIPASE 3150 U/L (73-393)
[2017-08-11] MEDS: ENOXAPARIN 40 MG/0.4 ML SYRINGE (J1650) SC (08:32)
[2017-08-11] MEDS: VITAMIN D 1,000 INTERNATIONAL UNITS TABLET PO (08:32)
[2017-08-11] MEDS: ASPIRIN 81 MG ENTERIC TAB PO (08:33)
[2017-08-11] MEDS: GABAPENTIN 300 MG CAP PO ×3 (08:33→20:30)
[2017-08-11] MEDS: FERROUS SULFATE 325MG TAB PO (08:33)
[2017-08-11] MEDS: METOPROLOL SUCC *XL* 25MG TAB (TopROL *XL*) PO (08:33)
[2017-08-11] MEDS: MULTIVITAMINS/MINERALS THERAP 1 TAB PO (08:33)
[2017-08-11] MEDS: BACTRIM 160MG/800MG DS TAB PO ×2 (10:19→20:30)
[2017-08-11] MEDS: LORazepam 2 MG TAB PO (20:30)
[2017-08-12 06:37] LABS: BASO # 0.1 10^3/uL (0.0-0.2); BASO % 0.4 % (0.0-1.0); EOS # 0.2 10^3/uL (0.0-0.50); EOS % 1.9 % (0.0-3.0); HEMATOCRIT 32.6 % (42.0-52.0); HEMOGLOBIN 10.7 g/dl (14.0-18.0); IMMATURE GRANULOCYTE % 0.7 % (0-3.0); LYMPH # 1.6 10^3/uL (1.5-4.5); LYMPH % 14.5 % (24.0-44.0); MEAN CORPUSCULAR HEMOGLOBIN 27.6 pg (27.0-33.0); MEAN CORPUSCULAR HGB CONC 32.8 g/dl (32.0-36.5); MONO # 0.8 10^3/uL (0.0-0.8); MONO % 6.9 % (0.0-5.0); NEUTROPHILS # 8.5 10^3/uL (1.8-7.7); NEUTROPHILS % 75.6 % (36.0-66.0); PLATELET COUNT, AUTOMATED 442 10^3/uL (150-450); RED BLOOD COUNT 3.88 10^6/uL (4.30-6.10); RED CELL DISTRIBUTION WIDTH 15.1 % (11.5-14.5); WHITE BLOOD COUNT 11.3 10^3/uL (4.0-10.0)
[2017-08-12 06:51] LABS: ALBUMIN 2.3 GM/DL (3.2-5.2); ALBUMIN/GLOBULIN RATIO 0.55 (1.00-1.93); ALKALINE PHOSPHATASE 190 U/L (45-117); ALT/SGPT 33 U/L (12-78); ANION GAP 7 MEQ/L (8-16); AST/SGOT 29 U/L (7-37); BILIRUBIN,TOTAL 0.3 MG/DL (0.2-1.0); BLOOD UREA NITROGEN 20 MG/DL (7-18); C REACTIVE PROTEIN QUANTITATIV 8.51 MG/DL (0.00-0.30); CALCIUM LEVEL 8.6 MG/DL (8.8-10.2); CARBON DIOXIDE LEVEL 28 MEQ/L (21-32); CHLORIDE LEVEL 106 MEQ/L (98-107); CREATININE FOR GFR 1.15 MG/DL (0.70-1.30); GLOMERULAR FILTRATION RATE > 60.0 (>49); GLUCOSE, FASTING 89 MG/DL (70-100); MAGNESIUM LEVEL 2.1 MG/DL (1.8-2.4); POTASSIUM SERUM 3.7 MEQ/L (3.5-5.1); SODIUM LEVEL 141 MEQ/L (136-145); TOTAL PROTEIN 6.5 GM/DL (6.4-8.2)
[2017-08-12] MEDS: ASPIRIN 81 MG ENTERIC TAB PO (08:54)
[2017-08-12] MEDS: BACTRIM 160MG/800MG DS TAB PO ×2 (08:54→21:06)
[2017-08-12] MEDS: GABAPENTIN 300 MG CAP PO ×3 (08:54→21:06)
[2017-08-12] MEDS: ENOXAPARIN 40 MG/0.4 ML SYRINGE (J1650) SC (08:54)
[2017-08-12] MEDS: VITAMIN D 1,000 INTERNATIONAL UNITS TABLET PO (08:54)
[2017-08-12] MEDS: FERROUS SULFATE 325MG TAB PO (08:54)
[2017-08-12] MEDS: MULTIVITAMINS/MINERALS THERAP 1 TAB PO (08:54)
[2017-08-12] MEDS: METOPROLOL SUCC *XL* 25MG TAB (TopROL *XL*) PO (08:55)
[2017-08-12] MEDS: LORazepam 2 MG TAB PO (21:06)
[2017-08-13 06:11] LABS: BASO # 0.1 10^3/uL (0.0-0.2); BASO % 0.5 % (0.0-1.0); EOS # 0.2 10^3/uL (0.0-0.50); HEMATOCRIT 34.3 % (42.0-52.0); HEMOGLOBIN 11.2 g/dl (14.0-18.0); IMMATURE GRANULOCYTE % 0.5 % (0-3.0); LYMPH # 1.6 10^3/uL (1.5-4.5); LYMPH % 17.4 % (24.0-44.0); MEAN CORPUSCULAR HEMOGLOBIN 27.3 pg (27.0-33.0); MEAN CORPUSCULAR HGB CONC 32.7 g/dl (32.0-36.5); MEAN CORPUSCULAR VOLUME 83.5 fl (80.0-96.0); MONO # 0.7 10^3/uL (0.0-0.8); MONO % 7.8 % (0.0-5.0); NEUTROPHILS # 6.8 10^3/uL (1.8-7.7); NEUTROPHILS % 71.8 % (36.0-66.0); PLATELET COUNT, AUTOMATED 482 10^3/uL (150-450); RED BLOOD COUNT 4.11 10^6/uL (4.30-6.10); WHITE BLOOD COUNT 9.4 10^3/uL (4.0-10.0)
[2017-08-13 06:32] LABS: ALBUMIN 2.6 GM/DL (3.2-5.2); ALBUMIN/GLOBULIN RATIO 0.58 (1.00-1.93); ALKALINE PHOSPHATASE 207 U/L (45-117); ALT/SGPT 38 U/L (12-78); ANION GAP 8 MEQ/L (8-16); AST/SGOT 30 U/L (7-37); BILIRUBIN,TOTAL 0.3 MG/DL (0.2-1.0); BLOOD UREA NITROGEN 21 MG/DL (7-18); C REACTIVE PROTEIN QUANTITATIV 6.11 MG/DL (0.00-0.30); CALCIUM LEVEL 8.8 MG/DL (8.8-10.2); CARBON DIOXIDE LEVEL 27 MEQ/L (21-32); CHLORIDE LEVEL 104 MEQ/L (98-107); CREATININE FOR GFR 1.16 MG/DL (0.70-1.30); GLOMERULAR FILTRATION RATE > 60.0 (>49); GLUCOSE, FASTING 92 MG/DL (70-100); MAGNESIUM LEVEL 2.2 MG/DL (1.8-2.4); POTASSIUM SERUM 3.9 MEQ/L (3.5-5.1); SODIUM LEVEL 139 MEQ/L (136-145); TOTAL PROTEIN 7.1 GM/DL (6.4-8.2)
[2017-08-13] MEDS: BACTRIM 160MG/800MG DS TAB PO (08:10)
[2017-08-13] MEDS: GABAPENTIN 300 MG CAP PO (08:11)
[2017-08-13] MEDS: MULTIVITAMINS/MINERALS THERAP 1 TAB PO (08:11)
[2017-08-13] MEDS: ENOXAPARIN 40 MG/0.4 ML SYRINGE (J1650) SC (08:11)
[2017-08-13] MEDS: FERROUS SULFATE 325MG TAB PO (08:11)
[2017-08-13] MEDS: VITAMIN D 1,000 INTERNATIONAL UNITS TABLET PO (08:11)
[2017-08-13] MEDS: ASPIRIN 81 MG ENTERIC TAB PO (08:12)
[2017-08-13] MEDS: METOPROLOL SUCC *XL* 25MG TAB (TopROL *XL*) PO ×2 (08:12→11:26)
== END 2017-08-13 11:53 | disposition home or self-care (01) | DRG 690 ==
LOC: M PCU 08-10 21:42 → M MSPAV 08-11 15:51 → M ED 17:57 → M ED INP 22:19
DX: N39.0 Urinary tract infection, site not specified (principal); K50.90 Crohn's disease, unspecified, without complications; N41.9 Inflammatory disease of prostate, unspecified; I10 Essential (primary) hypertension; E78.5 Hyperlipidemia, unspecified; G60.9 Hereditary and idiopathic neuropathy, unspecified; Z79.82 Long term (current) use of aspirin; Z79.899 Other long term (current) drug therapy; Z88.1 Allergy status to other antibiotic agents; Z88.8 Allergy status to other drugs, medicaments and biological substances; Z95.810 Presence of automatic (implantable) cardiac defibrillator; Z95.2 Presence of prosthetic heart valve

== ENCOUNTER 2017-08-14 17:12 | Inpatient (IN) | payer OTHER ==
[2017-08-14] MEDS ORDERED: ACETAMINOPHEN 325 MG TAB As Ordered (17:29)
[2017-08-14] MEDS: DILUENT IV (17:30)
[2017-08-14] MEDS: ACETAMINOPHEN 325 MG TAB PO (17:30)
[2017-08-14] MEDS: NS IV (17:30)
[2017-08-14 17:37] LABS: VENOUS BASE EXCESS -2.7 (-2.0-2.0); VENOUS O2 SATURATION 66.8 % (60.0-80.0); VENOUS PARTIAL PRESSURE CO2 37.7 mmHg (38.0-50.0); VENOUS PARTIAL PRESSURE O2 37.7 mmHg (30.0-50.0); VENOUS PH 7.383 UNITS (7.330-7.430); VENOUS STANDARD HCO3 21.6 MEQ/L; VENOUS TOTAL CO2 23.1 MEQ/L (24.0-28.0)
[2017-08-14 17:40] LABS: BASO # 0.1 10^3/uL (0.0-0.2); BASO % 0.4 % (0.0-1.0); EOS # 0.1 10^3/uL (0.0-0.50); EOS % 0.3 % (0.0-3.0); HEMATOCRIT 37.2 % (42.0-52.0); HEMOGLOBIN 12.2 g/dl (14.0-18.0); IMMATURE GRANULOCYTE % 0.5 % (0-3.0); LYMPH # 0.9 10^3/uL (1.5-4.5); LYMPH % 4.7 % (24.0-44.0); MEAN CORPUSCULAR HGB CONC 32.8 g/dl (32.0-36.5); MEAN CORPUSCULAR VOLUME 85.3 fl (80.0-96.0); MONO # 0.9 10^3/uL (0.0-0.8); MONO % 4.3 % (0.0-5.0); NEUTROPHILS % 89.8 % (36.0-66.0); PLATELET COUNT, AUTOMATED 556 10^3/uL (150-450); RED BLOOD COUNT 4.36 10^6/uL (4.30-6.10); RED CELL DISTRIBUTION WIDTH 14.6 % (11.5-14.5)
[2017-08-14 17:57] LABS: INR 1.05; PROTHROMBIN TIME 13.8 SECONDS (12.4-14.5)
[2017-08-14 18:04] LABS: ALBUMIN 3.1 GM/DL (3.2-5.2); ALBUMIN/GLOBULIN RATIO 0.61 (1.00-1.93); ALKALINE PHOSPHATASE 260 U/L (45-117); ALT/SGPT 41 U/L (12-78); AMYLASE 415 U/L (25-115); ANION GAP 10 MEQ/L (8-16); AST/SGOT 38 U/L (7-37); BILIRUBIN,DIRECT 0.1 MG/DL (0.0-0.2); BILIRUBIN,TOTAL 0.3 MG/DL (0.2-1.0); BLOOD UREA NITROGEN 25 MG/DL (7-18); C REACTIVE PROTEIN QUANTITATIV 4.76 MG/DL (0.00-0.30); CALCIUM LEVEL 9.1 MG/DL (8.8-10.2); CARBON DIOXIDE LEVEL 27 MEQ/L (21-32); CHLORIDE LEVEL 98 MEQ/L (98-107); CPK CREATINE PHOSPHOKINASE 20 U/L (39-308); CREATININE FOR GFR 1.36 MG/DL (0.70-1.30); GLOMERULAR FILTRATION RATE 56.9 (>49); GLUCOSE, FASTING 104 MG/DL (70-100); POTASSIUM SERUM 4.2 MEQ/L (3.5-5.1); SODIUM LEVEL 135 MEQ/L (136-145); TOTAL PROTEIN 8.2 GM/DL (6.4-8.2); TROPONIN I 0.06 NG/ML (< 0.10)
[2017-08-14 18:07] LABS: APPEARANCE, URINE CLEAR (CLEAR); BACTERIA, URINE AUTO NEGATIVE (NEGATIVE); BILIRUBIN, URINE AUTO NEGATIVE (NEGATIVE); BLOOD, URINE BLOOD NEGATIVE (NEGATIVE); COLOR, URINE YELLOW (YELLOW); GLUCOSE, URINE (UA) AUTO NEGATIVE (NEGATIVE); KETONE, URINE AUTO NEGATIVE (NEGATIVE); LEUKOCYTE ESTERASE, URINE AUTO 1+ (NEGATIVE); NITRITE, URINE AUTO NEGATIVE (NEGATIVE); PROTEIN, URINE AUTO NEGATIVE (NEGATIVE); RBC, URINE AUTO 4 /HPF (0-3); SPECIFIC GRAVITY URINE AUTO 1.012 (1.002-1.035); SQUAMOUS EPITHELIAL CELL UR AU 0 /HPF (0-6); UROBILINOGEN, URINE AUTO 0.2 mg/dL (0.0-2.0); WBC, URINE AUTO 11 /HPF (0-3)
[2017-08-14] MEDS: ERTAPENEM SODIUM 1 GM in NS MINI-BAG PLUS 50 ML IV (18:30)
[2017-08-14 18:38] LABS: LIPASE 7312 U/L (73-393)
[2017-08-14 18:46] LABS: LACTIC ACID SEPSIS PROTOCOL 2.2 MMOL/L (0.4-2.0)
[2017-08-14] MEDS ORDERED: ISOVUE-370 76% 100ML VIAL (Q9967) As Ordered (20:29)
[2017-08-14] MEDS: NS 1,000 ML IV (21:23)
[2017-08-14] MEDS: FERROUS SULFATE 325MG TAB PO (21:26)
[2017-08-14] MEDS: LORazepam 2 MG TAB PO (21:26)
[2017-08-14] MEDS: GABAPENTIN 300 MG CAP PO (21:26)
[2017-08-14 21:27] LABS: MAGNESIUM LEVEL 1.8 MG/DL (1.8-2.4)
[2017-08-14 21:35] LABS: LACTIC ACID SEPSIS PROTOCOL 1.3 MMOL/L (0.4-2.0)
[2017-08-15] MEDS: NS 1,000 ML IV ×4 (02:09→22:47)
[2017-08-15] MEDS: HEPARIN SOD (PORCINE) 5000 UNITS/ML VIAL SC ×3 (05:29→20:50)
[2017-08-15] MEDS: MEROPENEM INJ 1 GM in APPROPRIATE DILUENT 1 EA IV ×3 (05:29→20:50)
[2017-08-15 07:32] LABS: BASO # 0.1 10^3/uL (0.0-0.2); BASO % 0.5 % (0.0-1.0); EOS # 0.1 10^3/uL (0.0-0.50); HEMATOCRIT 30.4 % (42.0-52.0); IMMATURE GRANULOCYTE % 0.4 % (0-3.0); LYMPH # 1.2 10^3/uL (1.5-4.5); LYMPH % 9.1 % (24.0-44.0); MEAN CORPUSCULAR HEMOGLOBIN 27.5 pg (27.0-33.0); MEAN CORPUSCULAR HGB CONC 32.9 g/dl (32.0-36.5); MEAN CORPUSCULAR VOLUME 83.7 fl (80.0-96.0); MONO # 0.7 10^3/uL (0.0-0.8); MONO % 5.2 % (0.0-5.0); NEUTROPHILS # 11.2 10^3/uL (1.8-7.7); NEUTROPHILS % 83.8 % (36.0-66.0); RED BLOOD COUNT 3.63 10^6/uL (4.30-6.10); RED CELL DISTRIBUTION WIDTH 14.6 % (11.5-14.5); WHITE BLOOD COUNT 13.4 10^3/uL (4.0-10.0)
[2017-08-15 07:47] LABS: ALBUMIN 2.5 GM/DL (3.2-5.2); ALKALINE PHOSPHATASE 175 U/L (45-117); ALT/SGPT 27 U/L (12-78); ANION GAP 8 MEQ/L (8-16); AST/SGOT 22 U/L (7-37); BILIRUBIN,TOTAL 0.5 MG/DL (0.2-1.0); BLOOD UREA NITROGEN 18 MG/DL (7-18); C REACTIVE PROTEIN QUANTITATIV 9.68 MG/DL (0.00-0.30); CALCIUM LEVEL 8.2 MG/DL (8.8-10.2); CARBON DIOXIDE LEVEL 24 MEQ/L (21-32); CHLORIDE LEVEL 107 MEQ/L (98-107); CREATININE FOR GFR 1.07 MG/DL (0.70-1.30); GLOMERULAR FILTRATION RATE > 60.0 (>49); GLUCOSE, FASTING 88 MG/DL (70-100); POTASSIUM SERUM 3.9 MEQ/L (3.5-5.1); SODIUM LEVEL 139 MEQ/L (136-145); TOTAL PROTEIN 6.7 GM/DL (6.4-8.2)
[2017-08-15 07:48] LABS: PLATELET COUNT, AUTOMATED 399 10^3/uL (150-450)
[2017-08-15] MEDS: VITAMIN D 1,000 INTERNATIONAL UNITS TABLET PO (08:51)
[2017-08-15] MEDS: GABAPENTIN 300 MG CAP PO ×3 (08:51→20:50)
[2017-08-15] MEDS: ASPIRIN 81 MG ENTERIC TAB PO (08:51)
[2017-08-15] MEDS: METOPROLOL SUCC *XL* 25MG TAB (TopROL *XL*) PO (08:52)
[2017-08-15] MEDS: MULTIVITAMINS/MINERALS THERAP 1 TAB PO (08:52)
[2017-08-15] MEDS ORDERED: azaTHIOprine 50 MG TAB (J7500) PO (09:00)
[2017-08-15 10:24] LABS: HIV 1&2 SCREEN CENTAUR NEGATIVE (NEGATIVE)
[2017-08-15] MEDS ORDERED: MIDAZOLAM INJ 2 MG/2 ML VIAL (J2250) As Ordered ×4 (13:57→14:28)
[2017-08-15] MEDS: MIDAZOLAM INJ 2 MG/2 ML VIAL (J2250) IV (14:29)
[2017-08-15] MEDS: FERROUS SULFATE 325MG TAB PO (20:50)
[2017-08-15] MEDS: LORazepam 2 MG TAB PO (20:50)
[2017-08-16] MEDS: NS 1,000 ML IV (05:26)
[2017-08-16] MEDS: MEROPENEM INJ 1 GM in APPROPRIATE DILUENT 1 EA IV ×2 (05:26→14:49)
[2017-08-16] MEDS: HEPARIN SOD (PORCINE) 5000 UNITS/ML VIAL SC ×2 (05:26→14:49)
[2017-08-16 05:52] LABS: BASO # 0.1 10^3/uL (0.0-0.2); BASO % 0.6 % (0.0-1.0); EOS # 0.3 10^3/uL (0.0-0.50); EOS % 2.7 % (0.0-3.0); HEMATOCRIT 31.2 % (42.0-52.0); IMMATURE GRANULOCYTE % 0.7 % (0-3.0); LYMPH # 1.1 10^3/uL (1.5-4.5); LYMPH % 11.1 % (24.0-44.0); MEAN CORPUSCULAR HEMOGLOBIN 27.7 pg (27.0-33.0); MEAN CORPUSCULAR HGB CONC 32.1 g/dl (32.0-36.5); MEAN CORPUSCULAR VOLUME 86.4 fl (80.0-96.0); MONO # 0.8 10^3/uL (0.0-0.8); MONO % 8.3 % (0.0-5.0); NEUTROPHILS # 7.7 10^3/uL (1.8-7.7); NEUTROPHILS % 76.6 % (36.0-66.0); PLATELET COUNT, AUTOMATED 349 10^3/uL (150-450); RED BLOOD COUNT 3.61 10^6/uL (4.30-6.10); RED CELL DISTRIBUTION WIDTH 14.6 % (11.5-14.5); WHITE BLOOD COUNT 10.1 10^3/uL (4.0-10.0)
[2017-08-16 06:28] LABS: ALBUMIN 2.4 GM/DL (3.2-5.2); ALBUMIN/GLOBULIN RATIO 0.59 (1.00-1.93); ALKALINE PHOSPHATASE 170 U/L (45-117); ALT/SGPT 25 U/L (12-78); ANION GAP 8 MEQ/L (8-16); AST/SGOT 20 U/L (7-37); BILIRUBIN,TOTAL 0.3 MG/DL (0.2-1.0); BLOOD UREA NITROGEN 14 MG/DL (7-18); C REACTIVE PROTEIN QUANTITATIV 9.33 MG/DL (0.00-0.30); CALCIUM LEVEL 8.2 MG/DL (8.8-10.2); CARBON DIOXIDE LEVEL 26 MEQ/L (21-32); CHLORIDE LEVEL 109 MEQ/L (98-107); CREATININE FOR GFR 0.94 MG/DL (0.70-1.30); GLOMERULAR FILTRATION RATE > 60.0 (>49); GLUCOSE, FASTING 84 MG/DL (70-100); POTASSIUM SERUM 3.7 MEQ/L (3.5-5.1); SODIUM LEVEL 143 MEQ/L (136-145); TOTAL PROTEIN 6.5 GM/DL (6.4-8.2)
[2017-08-16] MEDS: ASPIRIN 81 MG ENTERIC TAB PO (08:49)
[2017-08-16] MEDS: MULTIVITAMINS/MINERALS THERAP 1 TAB PO (08:49)
[2017-08-16] MEDS: GABAPENTIN 300 MG CAP PO ×2 (08:49→16:18)
[2017-08-16] MEDS: VITAMIN D 1,000 INTERNATIONAL UNITS TABLET PO (08:49)
[2017-08-16] MEDS: METOPROLOL SUCC *XL* 25MG TAB (TopROL *XL*) PO (08:50)
[2017-08-16 09:57] LABS: ERYTHROCYTE SEDIMENTATION RATE 65 mm/hr (0-20)
[2017-08-16] MEDS: azaTHIOprine 50 MG TAB (J7500) PO (11:11)
[2017-08-16] MEDS: MELOXICAM (MOBIC) 7.5 MG TAB PO (11:12)
[2017-08-16] MEDS: ACETAMINOPHEN TAB 650MG DOSE (2X325MG) PO (16:20)
== END 2017-08-16 17:40 | disposition short-term general hospital (02) | DRG 314 ==
LOC: M MSPAV 08-16 10:15 → M PCU 08-15 19:44 → M ED 17:12 → M ED INP 23:05
PROC: B246ZZ4 Ultrasonography of Right and Left Heart, Transesophageal (ICD-10-PCS; principal; 2017-08-15 14:00)
DX: T82.7XXA Infection and inflammatory reaction due to other cardiac and vascular devices, implants and grafts, initial encounter (principal); A41.9 Sepsis, unspecified organism; E87.2 Acidosis; K50.90 Crohn's disease, unspecified, without complications; I10 Essential (primary) hypertension; E78.5 Hyperlipidemia, unspecified; G60.9 Hereditary and idiopathic neuropathy, unspecified; E55.9 Vitamin D deficiency, unspecified; G47.00 Insomnia, unspecified; D50.9 Iron deficiency anemia, unspecified; Z95.810 Presence of automatic (implantable) cardiac defibrillator; Z95.2 Presence of prosthetic heart valve; Z85.820 Personal history of malignant melanoma of skin; Z79.82 Long term (current) use of aspirin; Z79.899 Other long term (current) drug therapy; Z88.1 Allergy status to other antibiotic agents; Z88.8 Allergy status to other drugs, medicaments and biological substances; Y83.1 Surgical operation with implant of artificial internal device as the cause of abnormal reaction of the patient, or of later complication, without mention of misadventure at the time of the procedure

== ENCOUNTER → 2017-08-25 | Outpatient (REF) | payer OTHER ==
[2017-08-25 13:26] LABS: HEMATOCRIT 35.8 % (42.0-52.0); HEMOGLOBIN 11.4 g/dl (14.0-18.0); MEAN CORPUSCULAR HEMOGLOBIN 27.5 pg (27.0-33.0); MEAN CORPUSCULAR HGB CONC 31.8 g/dl (32.0-36.5); MEAN CORPUSCULAR VOLUME 86.3 fl (80.0-96.0); PLATELET COUNT, AUTOMATED 579 10^3/uL (150-450); RED BLOOD COUNT 4.15 10^6/uL (4.30-6.10); RED CELL DISTRIBUTION WIDTH 15.3 % (11.5-14.5)
[2017-08-25 13:42] LABS: ANION GAP 10 MEQ/L (8-16); BLOOD UREA NITROGEN 19 MG/DL (7-18); C REACTIVE PROTEIN QUANTITATIV 2.07 MG/DL (0.00-0.30); CALCIUM LEVEL 9.1 MG/DL (8.8-10.2); CARBON DIOXIDE LEVEL 26 MEQ/L (21-32); CHLORIDE LEVEL 101 MEQ/L (98-107); CREATININE FOR GFR 1.02 MG/DL (0.70-1.30); GLOMERULAR FILTRATION RATE > 60.0 (>49); GLUCOSE, FASTING 136 MG/DL (70-100); POTASSIUM SERUM 4.6 MEQ/L (3.5-5.1); SODIUM LEVEL 137 MEQ/L (136-145)
[2017-08-25 14:21] LABS: ERYTHROCYTE SEDIMENTATION RATE 70 mm/hr (0-20)
== END ==
LOC: M LAB REF 12:36
DX: A41.89 Other specified sepsis (principal)

== ENCOUNTER → 2017-09-02 | Outpatient (REF) | payer OTHER ==
[2017-09-02 14:54] LABS: HEMATOCRIT 32.7 % (42.0-52.0); HEMOGLOBIN 10.4 g/dl (14.0-18.0); MEAN CORPUSCULAR HEMOGLOBIN 27.8 pg (27.0-33.0); MEAN CORPUSCULAR HGB CONC 31.8 g/dl (32.0-36.5); MEAN CORPUSCULAR VOLUME 87.4 fl (80.0-96.0); PLATELET COUNT, AUTOMATED 402 10^3/uL (150-450); RED BLOOD COUNT 3.74 10^6/uL (4.30-6.10); RED CELL DISTRIBUTION WIDTH 16.4 % (11.5-14.5); WHITE BLOOD COUNT 9.4 10^3/uL (4.0-10.0)
[2017-09-02 15:15] LABS: ANION GAP 9 MEQ/L (8-16); BLOOD UREA NITROGEN 20 MG/DL (7-18); C REACTIVE PROTEIN QUANTITATIV 1.71 MG/DL (0.00-0.30); CALCIUM LEVEL 8.8 MG/DL (8.8-10.2); CARBON DIOXIDE LEVEL 27 MEQ/L (21-32); CHLORIDE LEVEL 104 MEQ/L (98-107); CREATININE FOR GFR 1.02 MG/DL (0.70-1.30); GLOMERULAR FILTRATION RATE > 60.0 (>49); GLUCOSE, FASTING 85 MG/DL (70-100); POTASSIUM SERUM 4.1 MEQ/L (3.5-5.1); SODIUM LEVEL 140 MEQ/L (136-145)
[2017-09-02 15:18] LABS: ERYTHROCYTE SEDIMENTATION RATE 58 mm/hr (0-20)
== END ==
LOC: M LAB REF 12:51
DX: A41.89 Other specified sepsis (principal)

== ENCOUNTER → 2017-09-08 | Outpatient (REF) | payer OTHER ==
[2017-09-08 12:48] LABS: HEMATOCRIT 33.3 % (42.0-52.0); HEMOGLOBIN 10.7 g/dl (14.0-18.0); MEAN CORPUSCULAR HEMOGLOBIN 27.7 pg (27.0-33.0); MEAN CORPUSCULAR HGB CONC 32.1 g/dl (32.0-36.5); MEAN CORPUSCULAR VOLUME 86.3 fl (80.0-96.0); PLATELET COUNT, AUTOMATED 311 10^3/uL (150-450); RED BLOOD COUNT 3.86 10^6/uL (4.30-6.10); RED CELL DISTRIBUTION WIDTH 16.5 % (11.5-14.5); WHITE BLOOD COUNT 7.4 10^3/uL (4.0-10.0)
[2017-09-08 13:18] LABS: ERYTHROCYTE SEDIMENTATION RATE 67 mm/hr (0-20)
[2017-09-08 13:40] LABS: ANION GAP 9 MEQ/L (8-16); BLOOD UREA NITROGEN 20 MG/DL (7-18); CALCIUM LEVEL 8.7 MG/DL (8.8-10.2); CARBON DIOXIDE LEVEL 26 MEQ/L (21-32); CHLORIDE LEVEL 103 MEQ/L (98-107); CREATININE FOR GFR 1.04 MG/DL (0.70-1.30); GLOMERULAR FILTRATION RATE > 60.0 (>49); GLUCOSE, FASTING 145 MG/DL (70-100); SODIUM LEVEL 138 MEQ/L (136-145)
== END ==
LOC: M LAB REF 12:31
DX: A41.89 Other specified sepsis (principal)
CPT/HCPCS: 80048

== ENCOUNTER → 2017-09-15 | Outpatient (REF) | payer OTHER ==
[2017-09-15 13:38] LABS: HEMATOCRIT 34.6 % (42.0-52.0); HEMOGLOBIN 10.8 g/dl (14.0-18.0); MEAN CORPUSCULAR HEMOGLOBIN 27.6 pg (27.0-33.0); MEAN CORPUSCULAR HGB CONC 31.2 g/dl (32.0-36.5); MEAN CORPUSCULAR VOLUME 88.3 fl (80.0-96.0); PLATELET COUNT, AUTOMATED 261 10^3/uL (150-450); RED BLOOD COUNT 3.92 10^6/uL (4.30-6.10); RED CELL DISTRIBUTION WIDTH 16.2 % (11.5-14.5); WHITE BLOOD COUNT 5.3 10^3/uL (4.0-10.0)
[2017-09-15 13:58] LABS: ANION GAP 4 MEQ/L (8-16); BLOOD UREA NITROGEN 17 MG/DL (7-18); C REACTIVE PROTEIN QUANTITATIV 1.48 MG/DL (0.00-0.30); CALCIUM LEVEL 8.6 MG/DL (8.8-10.2); CARBON DIOXIDE LEVEL 28 MEQ/L (21-32); CHLORIDE LEVEL 108 MEQ/L (98-107); CREATININE FOR GFR 1.09 MG/DL (0.70-1.30); GLOMERULAR FILTRATION RATE > 60.0 (>49); GLUCOSE, FASTING 123 MG/DL (70-100); SODIUM LEVEL 140 MEQ/L (136-145)
[2017-09-15 14:00] LABS: ERYTHROCYTE SEDIMENTATION RATE 49 mm/hr (0-20)
== END ==
LOC: M LAB REF 13:12
DX: A41.89 Other specified sepsis (principal)

== ENCOUNTER → 2017-09-22 | Outpatient (REF) | payer OTHER ==
[2017-09-22 13:41] LABS: HEMATOCRIT 34.4 % (42.0-52.0); HEMOGLOBIN 10.9 g/dl (13.5-17.5); MEAN CORPUSCULAR HEMOGLOBIN 27.3 pg (27.0-33.0); MEAN CORPUSCULAR HGB CONC 31.7 g/dl (32.0-36.5); MEAN CORPUSCULAR VOLUME 86.2 fl (80.0-96.0); PLATELET COUNT, AUTOMATED 303 10^3/uL (150-450); RED BLOOD COUNT 3.99 10^6/uL (4.30-6.10); RED CELL DISTRIBUTION WIDTH 16.2 % (11.5-14.5); WHITE BLOOD COUNT 5.3 10^3/uL (4.0-10.0)
[2017-09-22 13:57] LABS: ANION GAP 8 MEQ/L (8-16); BLOOD UREA NITROGEN 19 MG/DL (7-18); C REACTIVE PROTEIN QUANTITATIV 1.59 MG/DL (0.00-0.30); CALCIUM LEVEL 8.8 MG/DL (8.8-10.2); CARBON DIOXIDE LEVEL 26 MEQ/L (21-32); CHLORIDE LEVEL 107 MEQ/L (98-107); CREATININE FOR GFR 1.03 MG/DL (0.70-1.30); GLOMERULAR FILTRATION RATE > 60.0 (>49); GLUCOSE, FASTING 109 MG/DL (70-100); POTASSIUM SERUM 4.3 MEQ/L (3.5-5.1); SODIUM LEVEL 141 MEQ/L (136-145)
[2017-09-22 14:29] LABS: ERYTHROCYTE SEDIMENTATION RATE 67 mm/hr (0-20)
== END ==
LOC: M LAB REF 12:33
DX: A41.89 Other specified sepsis (principal)
CPT/HCPCS: 80048

== ENCOUNTER → 2018-01-05 | Outpatient (REF) | payer OTHER | LOC: M SFHCLERA 15:55 | DX: L03.031 Cellulitis of right toe (principal) ==

== ENCOUNTER → 2019-03-22 | Outpatient (REF) | payer MEDICARE, OTHER ==
[~2019-03-22] MED LIST changes: +AUGM875T28 PO; +AZAT50TA2 PO; +DOXY100T PO; +FERR1TAB8 PO; +GABA-843 PO; +GABA-845 PO; +LEVA1TAB2 PO; -LORA2TAB9; +LORA2TAB9 PO; +MELO7.5T7 PO; +METO1TAB32 PO; +METO1TAB7 PO; -MULT1CHW39 PO; +MULT200T7 PO; +SULF1TAB93 PO; +TOPR25TA PO; +VITMTA PO
[2019-03-22 13:28] LABS: BASO % 0.4 % (0.0-1.0); EOS # 0.1 10^3/uL (0.0-0.5); EOS % 0.7 % (0.0-3.0); HEMOGLOBIN 13.6 g/dl (13.5-17.5); LYMPH # 1.4 10^3/uL (1.5-5.0); LYMPH % 21.6 % (24.0-44.0); MEAN CORPUSCULAR HEMOGLOBIN 28.3 pg (27.0-33.0); MEAN CORPUSCULAR HGB CONC 31.6 g/dl (32.0-36.5); MEAN CORPUSCULAR VOLUME 89.4 fl (80.0-96.0); MONO # 0.6 10^3/uL (0.0-0.8); MONO % 8.8 % (0.0-5.0); NEUTROPHILS # 4.5 10^3/uL (1.5-8.5); NEUTROPHILS % 67.5 % (36.0-66.0); PLATELET COUNT, AUTOMATED 255 10^3/uL (150-450); RED BLOOD COUNT 4.81 10^6/uL (4.30-6.10); WHITE BLOOD COUNT 6.7 10^3/uL (4.0-10.0)
[2019-03-22 13:39] LABS: ALBUMIN 3.4 GM/DL (3.2-5.2); ALT/SGPT 22 U/L (12-78); BILIRUBIN,TOTAL 0.4 MG/DL (0.2-1.0); BLOOD UREA NITROGEN 19 MG/DL (7-18); CALCIUM LEVEL 9.2 MG/DL (8.8-10.2); CARBON DIOXIDE LEVEL 31 MEQ/L (21-32); CHLORIDE LEVEL 103 MEQ/L (98-107); CHOLESTEROL LEVEL 205 MG/DL (<200); CHOLESTEROL RISK RATIO 4.555 (<5); CREATININE FOR GFR 1.02 MG/DL (0.70-1.30); FERRITIN 39 NG/ML (26-388); GLOMERULAR FILTRATION RATE > 60.0 (>49); GLUCOSE, FASTING 77 MG/DL (70-100); HDL CHOLESTEROL 45 MG/DL (>40); IRON (FE) 87 UG/DL (65-175); LDL CHOLESTEROL 138 MG/DL (<100); NON-HDL-C 160 MG/DL; POTASSIUM SERUM 4.2 MEQ/L (3.5-5.1); SODIUM LEVEL 140 MEQ/L (136-145); TOTAL IRON BINDING CAPACITY 311 UG/DL (250-450); TOTAL PROTEIN 7.1 GM/DL (6.4-8.2); TRIGLYCERIDES LEVEL 109 MG/DL (<150)
[2019-03-22 13:52] LABS: FOLATE > 24.0 NG/ML; VITAMIN B12 LEVEL 519 PG/ML
[2019-03-22 14:42] LABS: HEMOGLOBIN A1c 5.4 %
== END ==
LOC: M SFHCLERA 09:27
PROVIDERS: ATTEND Family Medicine
DX: E55.9 Vitamin D deficiency, unspecified (principal); D50.9 Iron deficiency anemia, unspecified; I10 Essential (primary) hypertension; Z23 Encounter for immunization
CPT/HCPCS: 80053; 80061; 82306; 82607; 82728; 82746; 83036; 83550; 85025; 90682; G0008; G0463

== ENCOUNTER → 2019-10-21 | Outpatient (REF) | payer MEDICARE, OTHER ==
[~2019-10-21] MED LIST changes: +LORA2TAB14 PO; -LORA2TAB9 PO
== END ==
LOC: M LAB REF 10:42
PROVIDERS: ATTEND Dermatology
DX: L57.0 Actinic keratosis (principal)

== ENCOUNTER → 2019-12-06 | Outpatient (REF) | payer MEDICARE, OTHER ==
[~2019-12-06] MED LIST changes: -ASPI81TA85 PO; +ASPI81TA86 PO; +GABA-282 PO; -GABA-843 PO
[2019-12-06 11:14] LABS: BASO % 0.4 % (0.0-1.0); EOS # 0.1 10^3/uL (0.0-0.5); HEMATOCRIT 44.8 % (42.0-52.0); HEMOGLOBIN 14.6 g/dl (13.5-17.5); LYMPH # 1.6 10^3/uL (1.5-5.0); LYMPH % 22.7 % (24.0-44.0); MEAN CORPUSCULAR HEMOGLOBIN 29.4 pg (27.0-33.0); MEAN CORPUSCULAR HGB CONC 32.6 g/dl (32.0-36.5); MEAN CORPUSCULAR VOLUME 90.3 fl (80.0-96.0); MONO # 0.6 10^3/uL (0.0-0.8); MONO % 9.2 % (0.0-5.0); NEUTROPHILS # 4.6 10^3/uL (1.5-8.5); NEUTROPHILS % 66.4 % (36.0-66.0); PLATELET COUNT, AUTOMATED 225 10^3/uL (150-450); RED BLOOD COUNT 4.96 10^6/uL (4.30-6.10)
[2019-12-06 11:51] LABS: ALBUMIN 3.6 GM/DL (3.2-5.2); ALT/SGPT 27 U/L (12-78); BILIRUBIN,TOTAL 0.4 MG/DL (0.2-1.0); BLOOD UREA NITROGEN 15 MG/DL (7-18); CALCIUM LEVEL 9.2 MG/DL (8.8-10.2); CARBON DIOXIDE LEVEL 30 MEQ/L (21-32); CHLORIDE LEVEL 105 MEQ/L (98-107); CREATININE FOR GFR 1.04 MG/DL (0.70-1.30); GLOMERULAR FILTRATION RATE > 60.0 (>49); GLUCOSE, FASTING 92 MG/DL (70-100); IRON (FE) 126 UG/DL (65-175); PERCENT SATURATION 36.5 % (19.7-50.0); POTASSIUM SERUM 5.1 MEQ/L (3.5-5.1); SODIUM LEVEL 138 MEQ/L (136-145); TOTAL IRON BINDING CAPACITY 345 UG/DL (250-450); TOTAL PROTEIN 6.9 GM/DL (6.4-8.2); VITAMIN B12 LEVEL 615 PG/ML (247-911)
== END ==
LOC: M SFHCLERA 09:40
PROVIDERS: ATTEND Family Medicine
DX: K50.919 Crohn's disease, unspecified, with unspecified complications (principal); Z90.09 Acquired absence of other part of head and neck; Z79.899 Other long term (current) drug therapy
CPT/HCPCS: 36415; 80053; 82607; 83550; 84443; 85025; G0463

== ENCOUNTER → 2020-10-25 | Outpatient (CLI) | payer MEDICARE, OTHER ==
[2020-10-25 09:00] LABS: HEMATOCRIT 39.5 % (42.0-52.0); HEMOGLOBIN 12.3 g/dl (13.5-17.5); MEAN CORPUSCULAR HEMOGLOBIN 27.9 pg (27.0-33.0); MEAN CORPUSCULAR HGB CONC 31.1 g/dl (32.0-36.5); MEAN CORPUSCULAR VOLUME 89.6 fl (80.0-96.0); PLATELET COUNT, AUTOMATED 229 10^3/uL (150-450); RED BLOOD COUNT 4.41 10^6/uL (4.30-6.10); WHITE BLOOD COUNT 6.6 10^3/uL (4.0-10.0)
[2020-10-25 09:28] LABS: ERYTHROCYTE SEDIMENTATION RATE 12 mm/hr (0-20)
[2020-10-25 09:33] LABS: ALBUMIN 3.3 GM/DL (3.2-5.2); ALT/SGPT 22 U/L (12-78); BILIRUBIN,TOTAL 0.3 MG/DL (0.2-1.0); BLOOD UREA NITROGEN 17 MG/DL (7-18); C REACTIVE PROTEIN QUANTITATIV 1.18 MG/DL (0.00-0.30); CALCIUM LEVEL 8.8 MG/DL (8.8-10.2); CARBON DIOXIDE LEVEL 30 MEQ/L (21-32); CHLORIDE LEVEL 108 MEQ/L (98-107); CREATININE FOR GFR 0.93 MG/DL (0.70-1.30); FERRITIN 17 NG/ML (26-388); GLOMERULAR FILTRATION RATE > 60.0 (>49); GLUCOSE, FASTING 91 MG/DL (70-100); IRON (FE) 24 UG/DL (65-175); PERCENT SATURATION 7.1 % (19.7-50.0); POTASSIUM SERUM 4.2 MEQ/L (3.5-5.1); SODIUM LEVEL 141 MEQ/L (136-145); TOTAL IRON BINDING CAPACITY 338 UG/DL (250-450); TOTAL PROTEIN 6.4 GM/DL (6.4-8.2)
[2020-10-25 09:59] LABS: TOTAL 25(OH) VITAMIN D 35.9 NG/ML (30.0-100.0)
[2020-10-25 10:00] LABS: VITAMIN B12 LEVEL 595 PG/ML (247-911)
== END ==
LOC: M LAB 08:15
PROVIDERS: ATTEND Internal Medicine Gastroenterology
DX: K50.90 Crohn's disease, unspecified, without complications (principal); E56.9 Vitamin deficiency, unspecified; D50.9 Iron deficiency anemia, unspecified; I10 Essential (primary) hypertension

== ENCOUNTER → 2020-10-25 | Outpatient (CLI) | payer MEDICARE, OTHER ==
[2020-10-25 09:28] LABS: BLOOD UREA NITROGEN 17 MG/DL (7-18); CALCIUM LEVEL 8.7 MG/DL (8.8-10.2); CARBON DIOXIDE LEVEL 30 MEQ/L (21-32); CHLORIDE LEVEL 108 MEQ/L (98-107); CREATININE FOR GFR 0.96 MG/DL (0.70-1.30); GLOMERULAR FILTRATION RATE > 60.0 (>49); GLUCOSE, FASTING 94 MG/DL (70-100); POTASSIUM SERUM 4.3 MEQ/L (3.5-5.1); SODIUM LEVEL 140 MEQ/L (136-145)
== END ==
LOC: M LAB 08:11
PROVIDERS: ATTEND Family Medicine
DX: I10 Essential (primary) hypertension (principal)

== ENCOUNTER → 2021-04-13 | Outpatient (CLI) | payer MEDICARE, OTHER ==
[~2021-04-13] MED LIST changes: +BACTDSTA PO; +GABA-283 PO; -GABA-845 PO; -SULF1TAB93 PO
[2021-04-13 12:05] LABS: HEMATOCRIT 43.6 % (42.0-52.0); HEMOGLOBIN 14.3 g/dl (13.5-17.5); MEAN CORPUSCULAR HEMOGLOBIN 28.7 pg (27.0-33.0); MEAN CORPUSCULAR HGB CONC 32.8 g/dl (32.0-36.5); MEAN CORPUSCULAR VOLUME 87.6 fl (80.0-96.0); PLATELET COUNT, AUTOMATED 220 10^3/uL (150-450); RED BLOOD COUNT 4.98 10^6/uL (4.30-6.10); WHITE BLOOD COUNT 7.8 10^3/uL (4.0-10.0)
[2021-04-13 12:39] LABS: ALBUMIN 3.5 GM/DL (3.2-5.2); ALT/SGPT 24 U/L (12-78); BILIRUBIN,TOTAL 0.5 MG/DL (0.2-1.0); BLOOD UREA NITROGEN 18 MG/DL (7-18); C REACTIVE PROTEIN QUANTITATIV 1.07 MG/DL (0.00-0.30); CALCIUM LEVEL 9.1 MG/DL (8.8-10.2); CARBON DIOXIDE LEVEL 29 MEQ/L (21-32); CHLORIDE LEVEL 106 MEQ/L (98-107); CREATININE FOR GFR 1.08 MG/DL (0.70-1.30); GLOMERULAR FILTRATION RATE > 60.0 (>49); GLUCOSE, FASTING 109 MG/DL (70-100); POTASSIUM SERUM 4.2 MEQ/L (3.5-5.1); SODIUM LEVEL 138 MEQ/L (136-145); TOTAL PROTEIN 6.9 GM/DL (6.4-8.2)
[2021-04-13 12:46] LABS: TOTAL 25(OH) VITAMIN D 39.2 NG/ML (30.0-100.0)
[2021-04-13 12:47] LABS: VITAMIN B12 LEVEL 790 PG/ML (247-911)
== END ==
LOC: M LAB 11:24
PROVIDERS: ATTEND Internal Medicine Gastroenterology
DX: K50.90 Crohn's disease, unspecified, without complications (principal); K57.30 Diverticulosis of large intestine without perforation or abscess without bleeding; D50.9 Iron deficiency anemia, unspecified; K21.00 Gastro-esophageal reflux disease with esophagitis, without bleeding; E56.9 Vitamin deficiency, unspecified

== ENCOUNTER → 2021-05-30 | Outpatient (REF) | LOC: M LABSMTC 13:31 | PROVIDERS: ATTEND Pediatrics | DX: Z11.52 Encounter for screening for COVID-19 (principal) ==

== ENCOUNTER → 2021-08-31 | Outpatient (CLI) | payer MEDICARE, OTHER | LOC: M RAD 13:55 | PROVIDERS: ATTEND Physician Assistant | DX: I65.29 Occlusion and stenosis of unspecified carotid artery (principal); I50.32 Chronic diastolic (congestive) heart failure ==

== ENCOUNTER → 2021-08-31 | Outpatient (CLI) | payer MEDICARE, OTHER ==
[2021-08-31 16:06] LABS: HEMATOCRIT 43.4 % (42.0-52.0); HEMOGLOBIN 14.5 g/dl (13.5-17.5); MEAN CORPUSCULAR HEMOGLOBIN 29.1 pg (27.0-33.0); MEAN CORPUSCULAR HGB CONC 33.4 g/dl (32.0-36.5); MEAN CORPUSCULAR VOLUME 87.1 fl (80.0-96.0); PLATELET COUNT, AUTOMATED 191 10^3/uL (150-450); RED BLOOD COUNT 4.98 10^6/uL (4.30-6.10); WHITE BLOOD COUNT 7.4 10^3/uL (4.0-10.0)
[2021-08-31 16:28] LABS: ALBUMIN 3.5 GM/DL (3.2-5.2); ALT/SGPT 27 U/L (12-78); BILIRUBIN,TOTAL 0.3 MG/DL (0.2-1.0); BLOOD UREA NITROGEN 17 MG/DL (7-18); CALCIUM LEVEL 8.8 MG/DL (8.8-10.2); CARBON DIOXIDE LEVEL 29 MEQ/L (21-32); CHLORIDE LEVEL 105 MEQ/L (98-107); CREATININE FOR GFR 0.97 MG/DL (0.70-1.30); GLOMERULAR FILTRATION RATE > 60.0 (>49); GLUCOSE, FASTING 107 MG/DL (70-100); MAGNESIUM LEVEL 2.1 MG/DL (1.8-2.4); POTASSIUM SERUM 4.1 MEQ/L (3.5-5.1); SODIUM LEVEL 138 MEQ/L (136-145); TOTAL PROTEIN 6.8 GM/DL (6.4-8.2)
== END ==
LOC: M LAB 14:45
PROVIDERS: ATTEND Physician Assistant
DX: I50.32 Chronic diastolic (congestive) heart failure (principal)

== ENCOUNTER → 2022-05-07 | Outpatient (CLI) | payer MEDICARE, OTHER ==
[~2022-05-07] MED LIST changes: -AZAT50TA2 PO; +AZAT50TA37 PO
[2022-05-07 10:09] LABS: HEMATOCRIT 45.3 % (42.0-52.0); HEMOGLOBIN 14.8 g/dl (13.5-17.5); MEAN CORPUSCULAR HEMOGLOBIN 29.5 pg (27.0-33.0); MEAN CORPUSCULAR HGB CONC 32.7 g/dl (32.0-36.5); MEAN CORPUSCULAR VOLUME 90.2 fl (80.0-96.0); PLATELET COUNT, AUTOMATED 185 10^3/uL (150-450); RED BLOOD COUNT 5.02 10^6/uL (4.30-6.10); WHITE BLOOD COUNT 8.1 10^3/uL (4.0-10.0)
[2022-05-07 10:37] LABS: ERYTHROCYTE SEDIMENTATION RATE 11 mm/hr (0-20)
[2022-05-07 15:45] LABS: ALBUMIN 3.5 G/DL (3.2-5.2); ALT/SGPT 20 U/L (7.0-40); BILIRUBIN,TOTAL 0.5 MG/DL (0.3-1.2); BLOOD UREA NITROGEN 21 MG/DL (9-23); CALCIUM LEVEL 8.7 MG/DL (8.3-10.6); CARBON DIOXIDE LEVEL 26 MMOL/L (20-31); CHLORIDE LEVEL 103 MMOL/L (98-107); CREATININE FOR GFR 0.93 MG/DL (0.70-1.30); FERRITIN 34.3 NG/ML (10.5-307.3); GLOMERULAR FILTRATION RATE > 60.0 (>49); GLUCOSE, FASTING 103 MG/DL (74-106); IRON (FE) 62 UG/DL (65-175); MAGNESIUM LEVEL 1.8 MG/DL (1.8-2.4); PERCENT SATURATION 20.3 % (19.7-50.0); POTASSIUM SERUM 4.3 MMOL/L (3.5-5.1); SODIUM LEVEL 139 MMOL/L (136-145); TOTAL IRON BINDING CAPACITY 306 UG/DL (250-425); TOTAL PROTEIN 6.5 G/DL; VITAMIN B12 LEVEL 289 PG/ML (211-911)
== END ==
LOC: M LAB 09:01
PROVIDERS: ATTEND Nurse Practitioner Family
DX: K50.90 Crohn's disease, unspecified, without complications (principal); K21.00 Gastro-esophageal reflux disease with esophagitis, without bleeding; E55.9 Vitamin D deficiency, unspecified

== ENCOUNTER → 2023-02-17 | Outpatient (REF) | payer MEDICARE ==
[~2023-02-17] MED LIST changes: -GABA-283 PO; +GABA-284 PO
== END ==
LOC: M SFHCDERM 17:27
PROVIDERS: ATTEND Physician Assistant
DX: L82.1 Other seborrheic keratosis (principal)